=== PATIENT | male | born 1990 | race African-American/Black ===

== ENCOUNTER 2018-05-01 07:18 | Emergency (ER) | payer SELFPAY ==
[~2018-05-01] VITALS: Ht 172.7 cm; Wt 74.4 kg
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
[2018-05-01] MEDS ORDERED: IBUPROFEN 600 MG TABLET. PO ONE (08:15)
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
[2018-05-01] MEDS ORDERED: CYCL-331 PO (08:39)
[2018-05-01] MEDS ORDERED: IBUP800T19 PO (08:39)
[2018-05-01 08:50] VITALS: BP 129/63
== END 2018-05-01 08:50 | disposition home or self-care (01) ==
LOC: ER 07:18
DX: S09.90XA Unspecified injury of head, initial encounter (principal); S46.811A Strain of other muscles, fascia and tendons at shoulder and upper arm level, right arm, initial encounter; V89.2XXA Person injured in unspecified motor-vehicle accident, traffic, initial encounter; Y93.I9 Activity, other involving external motion; Y92.488 Other paved roadways as the place of occurrence of the external cause; Y99.8 Other external cause status
CPT/HCPCS: 70450; 72125; 73010; 99284-25

== ENCOUNTER 2018-07-09 15:35 | Emergency (ER) | payer SELFPAY ==
[~2018-07-09] VITALS: Ht 175.3 cm; Wt 77.1 kg
[~2018-07-09 15:35] MED LIST: CYCL-331 PO; IBUP800T19 PO
[2018-07-09 15:52] VITALS: BP 122/53
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
== END 2018-07-09 16:17 | disposition home or self-care (01) ==
LOC: ER 15:35
DX: M79.672 Pain in left foot (principal)
CPT/HCPCS: 73130; 99283

== ENCOUNTER 2018-07-27 15:25 | Emergency (ER) | payer SELFPAY ==
[2018-07-27 15:25] VITALS: BP 115/65
[2018-07-28] MEDS ORDERED: FLUT9.9S NS (10:04)
== END 2018-07-27 16:16 | disposition left against medical advice (07) ==
LOC: ER 15:25
DX: J02.9 Acute pharyngitis, unspecified (principal); Z53.21 Procedure and treatment not carried out due to patient leaving prior to being seen by health care provider

== ENCOUNTER 2018-07-28 09:08 | Emergency (ER) | payer SELFPAY ==
[~2018-07-28] VITALS: Ht 172.7 cm; Wt 77.6 kg
[2018-07-28 09:10] VITALS: BP 137/70
--- NOTE | 2018-07-28 09:32 | PHYS DOC ---
Past History Past Medical History: No Pertinent History Past Surgical History: No Surgical History Smoking: Non-smoker Alcohol Use: Occasionally Drug Use: None Adult General Chief Complaint Chief Complaint: SORE THROAT HPI HPI Patient is a 27 year old M who presents with sore throat and nasal congestion over the past 3 days. Review of Systems Review of Systems Constitutional: Denies fever or chills [] Eyes: Denies change in visual acuity, redness, or eye pain [] HENT: Negative except history of present illness Respiratory: Denies cough or shortness of breath [] Cardiovascular: No additional information not addressed in HPI [] GI: Denies abdominal pain, nausea, vomiting, bloody stools or diarrhea [] : Denies dysuria or hematuria [] Musculoskeletal: Denies back pain or joint pain [] Integument: Denies rash or skin lesions [] Neurologic: Denies headache, focal weakness or sensory changes [] Endocrine: Denies polyuria or polydipsia [] All other systems were reviewed and found to be within normal limits, except as documented in this note. Family History Family History No pertinent medical history was reported Current Medications Current Medications Current medications were reviewed Allergies Allergies Allergies Coded Allergies Type Severity Reaction Last Updated Verified No Known Drug Allergies 05/01/18 No Physical Exam Physical Exam Constitutional: Well developed, well nourished, no acute distress, non-toxic appearance. [] HENT: Normocephalic, atraumatic, moderate nasal mucosal erythema and edema, or pharyngeal erythema with tonsillar edema and white patches Eyes: EOMI, conjunctiva normal, no discharge. [] Neck: Normal range of motion, no tenderness, supple, no stridor. [] Cardiovascular:Heart rate regular rhythm, Lungs & Thorax: Bilateral breath sounds clear to auscultation [] Abdomen: Bowel sounds normal, soft, no tenderness, no masses, no pulsatile masses. [] Skin: Warm, dry, no erythema, no rash. [] Extremities: No tenderness, no cyanosis, no clubbing, ROM intact, no edema. [] Neurologic: Alert and oriented X 3, normal motor function, normal sensory function, no focal deficits noted. [] Psychologic: Affect normal, judgement normal, mood normal. [] Current Patient Data Lab Results Laboratory Tests Test 07/28/18 09:25 Group A Streptococcus Rapid Negative (NEGATIVE) EKG EKG [] Radiology/Procedures Radiology/Procedures [] Course & Med Decision Making Course & Med Decision Making Pertinent Labs and Imaging studies reviewed. (See chart for details) [] Dragon Disclaimer Dragon Disclaimer This electronic medical record was generated, in whole or in part, using a voice recognition dictation system. Departure Departure: Impression: Primary Impression: Upper respiratory infection Disposition: HOME, SELF-CARE Condition: STABLE Referrals: PCP,NO (PCP) Patient Instructions: Upper Respiratory Infection, Adult Additional Instructions: Nadiya seen in the emergency Department for sore throat. No emergency medical condition was on a history of physical exam. His symptoms are most consistent with a viral respiratory infection. He was encouraged to use nasal saline rinses regularly was given a prescription for nasal steroid spray. He did have a negative strep throat screen. He was encouraged to follow up with his primary care doctor as needed for further management. Scripts Fluticasone Propionate (Flonase Allergy Relief) 9.9 Ml [place].susp 1 SPRAYS NS BID for respiratory infection for 7 Days, BOTTLE Prov: MARITA SARMIENTO MD 07/28/18 Problem Qualifiers Primary Impression: Upper respiratory infection URI type: unspecified viral URI Qualified Codes: J06.9 - Acute upper respiratory infection, unspecified MARITA SARMIENTO MD Jul 28, 2018 09:32
[2018-07-28] MEDS ORDERED: FLUT9.9S NS (10:04)
== END 2018-07-28 10:10 | disposition home or self-care (01) ==
LOC: ER 09:08
DX: J06.9 Acute upper respiratory infection, unspecified (principal)
CPT/HCPCS: 87070; 87880; 99283

== ENCOUNTER 2018-11-03 15:40 | Emergency (ER) | payer SELFPAY ==
[~2018-11-03] VITALS: Ht 172.7 cm; Wt 75.7 kg
[~2018-11-03 15:40] MED LIST changes: +FLUT9.9S NS
[2018-11-03 15:54] VITALS: BP 129/75
--- NOTE | 2018-11-03 16:13 | PHYS DOC ---
Past History Past Medical History: No Pertinent History Past Surgical History: No Surgical History Smoking: Non-smoker Alcohol Use: None Drug Use: None Adult General Chief Complaint Chief Complaint: COUGH HPI HPI 28-year-old male presents with cough. The patient states he's had a cough for several weeks. 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 There is a lot of dust [id number] time. He has not been wearing a mask. There are mass provided at his work, but not required. He is also noted some bloody nasal discharge when he blows his nose or coughs up phlegm. He is concerned about this. He does not have a primary care physician. He has no significant history. He is not a smoker. Denies fever or chills. Review of Systems Review of Systems Constitutional: Denies fever or chills [] Eyes: Denies change in visual acuity, redness, or eye pain [] HENT: Denies nasal congestion or sore throat [] Respiratory: Cough without shortness of breath [] Cardiovascular: No additional information not addressed in HPI [] GI: Denies abdominal pain, nausea, vomiting, bloody stools or diarrhea [] : Denies dysuria or hematuria [] Musculoskeletal: Denies back pain or joint pain [] Integument: Denies rash or skin lesions [] Neurologic: Denies headache, focal weakness or sensory changes [] Endocrine: Denies polyuria or polydipsia [] All other systems were reviewed and found to be within normal limits, except as documented in this note. Allergies Allergies Allergies Coded Allergies Type Severity Reaction Last Updated Verified No Known Drug Allergies 05/01/18 No Physical Exam Physical Exam Constitutional: Well developed, well nourished, no acute distress, non-toxic appearance. [] HENT: Normocephalic, atraumatic, bilateral external ears normal, oropharynx moist, no oral exudates, nose normal. [] Eyes: PERRLA, EOMI, conjunctiva normal, no discharge. [] Neck: Normal range of motion, no tenderness, supple, no stridor. [] Cardiovascular:Heart rate regular rhythm, no murmur [] Lungs & Thorax: Bilateral breath sounds clear to auscultation [] Abdomen: Bowel sounds normal, soft, no tenderness, no masses, no pulsatile masses. [] Skin: Warm, dry, no erythema, no rash. [] Back: No tenderness, no CVA tenderness. [] Extremities: No tenderness, no cyanosis, no clubbing, ROM intact, no edema. [] Neurologic: Alert and oriented X 3, normal motor function, normal sensory functi on, no focal deficits noted. [] Psychologic: Affect normal, judgement normal, mood normal. [] Current Patient Data Vital Signs Vital Signs Date Time Temp Pulse Resp B/P (MAP) Pulse Ox O2 Delivery O2 Flow Rate FiO2 11/03/18 15:54 98.4 73 22 98 Room Air EKG EKG [] Radiology/Procedures Radiology/Procedures [] Impressions: Preliminary read chest x-ray: no acute cardio polite findings. Course & Med Decision Making Course & Med Decision Making Pertinent Labs and Imaging studies reviewed. (See chart for details) Patient's chest x-ray is unremarkable. I believe his symptoms are from continual irritation from the dust particles. I have stressed to him that it would be a good idea to wear a mask at all times well at work and exposed to the wood dust. He states verbal understanding. He is stable for discharge at this time. [] Dragon Disclaimer Dragon Disclaimer This electronic medical record was generated, in whole or in part, using a voice recognition dictation system. Departure Departure: Impression: Primary Impression: Cough in adult Disposition: 01 HOME, SELF-CARE Condition: STABLE Referrals: PCPSCAR (PCP) Patient Instructions: Cough, Adult, [id number] VIR[place]IA GUEVARA DO Nov 03, 2018 16:13
--- NOTE | 2018-11-03 17:05 | RAD ---
Chest, 2 views 11/03/2018: HISTORY: Cough The heart size is normal. The lungs are clear. There is no evidence of pleural fluid. IMPRESSION: No acute cardiopulmonary abnormality is detected. Electronically signed by: Felix Muro MD (11/03/2018 5:02 PM) [facility]
== END 2018-11-03 16:55 | disposition home or self-care (01) ==
LOC: ER 15:40
DX: R05 Cough (principal); J34.89 Other specified disorders of nose and nasal sinuses
CPT/HCPCS: 71046; 99284